=== PATIENT | female | born 1945 | race Caucasian/White ===

== ENCOUNTER → 2021-09-20 | Day surgery (SDC) | payer MEDICARE, OTHER | END | disposition home or self-care (01) | LOC: MSO 09:06 | DX: H25.812 Combined forms of age-related cataract, left eye (principal) | CPT/HCPCS: 00142; J0171; J2250; V2632 ==

== ENCOUNTER 2024-11-23 17:29 | Emergency (ER) | payer MEDICARE, OTHER ==
[2024-11-23] MEDS ORDERED: TAMIFLU 75MG75 MG PO (19:00)
[2024-11-23] MEDS ORDERED: Budesonide Neb Soln 0.5 MG/2 ML AMP IH ONE (19:45)
[2024-11-23] MEDS ORDERED: Albuterol/Ipratropium 3 MG-0.5 MG/3 ML Neb Soln IH ONE (19:45)
[2024-11-23] MEDS ORDERED: PROAIR HFA0.09 MG/AC IH (20:11)
[2024-11-23] MEDS ORDERED: MEDROL DOSEPAK4 MG PO (20:11)
[2024-11-23] MEDS ORDERED: AZITHROMYCIN 250MGPK PO (20:12)
[2024-11-23 20:17] VITALS: BP 131/61
== END 2024-11-23 20:17 | disposition home or self-care (01) ==
LOC: ED 17:29
DX: J10.1 Influenza due to other identified influenza virus with other respiratory manifestations (principal)